=== PATIENT | female | born 1935 ===

== ENCOUNTER 2017-02-15 14:45 | Emergency (ER) | payer MEDICARE ==
[2017-02-15 14:45] VITALS: BMI 23.4
[2017-02-15 15:08] VITALS: BP 140/88; PULSE 84; RESP 18; TEMP 98.2; O2SAT 98
--- NOTE | 2017-02-15 16:09 | ED PDOC ---
Lower Extremity Pain/Injury Time Seen by Provider: 02/15/17 15:46 Chief Complaint (Nursing): Lower Extremity Problem/Injury Chief Complaint (Provider): left foot infection. History Per: Patient History/Exam Limitations: no limitations Additional Complaint(s): 81yo F with hx of RA in ED with x 1month of MRSA infxtn to left medial malleous- recently completed bactrim, however pt states wound has not improved. denies drainage fro wound, denies fever chills, nausea or vomiting. admits to swelling to ankle, however pt states that RA is progressing. no longer taking medication for RA. Past Medical History Reviewed: Historical Data, Nursing Documentation, Vital Signs Vital Signs: Last Vital Signs Temp 98.2 F 02/15/17 15:04 Pulse 84 02/15/17 15:04 Resp 18 02/15/17 15:04 BP 140/88 02/15/17 15:04 Pulse Ox 98 02/15/17 15:04 - Medical History PMH: Anemia, Arthritis, COPD, Crohn's Disease, Depression, Hypercholesterolemia , Osteoporosis, Rheumatoid Arthritis Denies: Chronic Kidney Disease - Family History Family History: States: Unknown Family Hx - Home Medications Home Medications: Ambulatory Orders Medication Instructions Recorded Alprazolam [Xanax] 1.5 mg PO HS 10/04/14 Escitalopram [Lexapro] 30 mg PO DAILY 10/04/14 Etanercept [Enbrel] 25 mg SC .2X WEEKLY 10/04/14 Methotrexate Sodium [Methotrexate] 8 tab PO QWK 10/04/14 Pravastatin Sodium 80 mg PO DAILY 10/04/14 PrednisoLONE 1% [Prednisolone 1 ml OP BID 10/04/14 Acetate 5 Ml] Raloxifene HCl [Evista] 60 mg PO DAILY 10/04/14 Aspirin 325 mg PO DAILY 03/06/15 Acetaminophen with Codeine 2 tab PO Q4H PRN #22 tab 08/30/16 [Tylenol with Codeine No. 3 300 mg-30 mg] Atropine/Diphenoxylate [Lonox 2 tab PO Q6 #30 tab 08/30/16 0.025 MG-2.5 MG] Ciprofloxacin HCl [Cipro] 500 mg PO BID #20 tab 08/30/16 Skin Cleanser Comb No.11 [Cavilon] 1 applic TP PRN PRN #1 bot 08/30/16 metroNIDAZOLE [Flagyl] 500 mg PO TID #30 tab 08/30/16 - Allergies Allergies/Adverse Reactions: Allergies Allergy/AdvReac Type Severity Reaction Status Date / Time pollen extracts AdvReac sneezing Verified 08/30/16 16:53 Review of Systems ROS Statement: Except As Marked, All Systems Reviewed And Found Negative Constitutional: Negative for: Fever, Chills Musculoskeletal: Positive for: Foot Pain Physical Exam - Reviewed Nursing Documentation Reviewed: Yes Vital Signs Reviewed: Yes - Physical Exam Appears: Positive for: Well, Non-toxic, No Acute Distress Head Exam: Positive for: ATRAUMATIC, NORMAL INSPECTION, NORMOCEPHALIC Skin: Positive for: Normal Color, Warm, DRY Cardiovascular/Chest: Positive for: Regular Rate, Rhythm Respiratory: Positive for: CNT, Normal Breath Sounds Extremity: Positive for: Other (left foot: inner ankle-wound noted-open without drainage, warmth noted no streaking noted. swelling noted. RA deformity noted. ) Neurologic/Psych: Positive for: Alert, Oriented - Laboratory Results Result Diagrams: 02/15/17 16:45 02/15/17 16:45 - ECG O2 Sat by Pulse Oximetry: 98 - Progress ED Course And Treament: pt will get labs and xray to f/o osteomyoltis. podiatry consulted . Medical Decision Making Medical Decision Making: podiatry evaluated pt wound guaze provided to pt and pt requested to f.u with wound care clinic Thursday. pt stable d/c Disposition - Clinical Impression Clinical Impression: Ulceration - Patient ED Disposition Is Patient to be Admitted: No Counseled Patient/Family Regarding: Studies Performed, Diagnosis, Need For Followup - Disposition Disposition: Routine/Home Disposition Time: 18:34 Condition: STABLE Additional Instructions: wound care clinic: [phone] Instructions: How to Prevent Pressure Ulcers (ED)
[2017-02-15 16:59] LABS: BASO # 0.1 K/uL (0.0-0.2); BASO % 0.9 % (0.0-2.0); EOS # 0.3 K/uL (0.0-0.7); EOS % 3.4 % (0.0-4.0); HEMATOCRIT 33.3 % (34.0-47.0); LYMPH # 1.2 K/uL (1.0-4.3); MEAN CORPUSCULAR HEMOGLOBIN 30.3 pg (27.0-31.0); MEAN CORPUSCULAR HGB CONC 32.2 g/dL (33.0-37.0); MEAN PLATELET VOLUME 7.5 fl (7.2-11.7); MONO # 0.5 K/uL (0.0-0.8); MONO % 5.8 % (0.0-10.0); NEUT # 7.3 K/uL (1.8-7.0); NEUT % 76.9 % (50.0-75.0); RED CELL DISTRIBUTION WIDTH 18.7 % (11.5-14.5); WHITE BLOOD COUNT 9.4 K/uL (4.8-10.8)
[2017-02-15 17:15] LABS: ALB/GLOB RATIO 0.9 (1.0-2.1); ALKALINE PHOSPHATASE 99 U/L (38-126); ALT/SGPT 22 U/L (9-52); AST/SGOT 50 U/L (14-36); BILIRUBIN,TOTAL 0.6 mg/dl (0.2-1.3); BLOOD UREA NITROGEN 16 mg/dl (7-17); CALCIUM 9.8 mg/dL (8.4-10.2); CARBON DIOXIDE 29 mmol/L (22-30); CHLORIDE 102 mmol/L (98-107); GFR AFRICAN-AMERICAN > 60; GLUCOSE,RANDOM 66 mg/dL (65-105); SODIUM 145 mmol/l (132-148); TOTAL PROTEIN 8.9 G/DL (6.3-8.2)
--- NOTE | 2017-02-15 17:54 | CP.PCM.CON ---
History of Present Illness - History of Present Illness History of Present Illness: 81 year old female with PMHx of RA presents to ED with daughter for complain of painful ulceration to left medial malleolus. Patient states that she has had this ulcer for 1 month. She has been seen by her PMD who prescribed her oral bactrim and bactroban for local wound care. She states that her PMD cultured the wound and it is growing MRSA. The wound got better for a week while she was taking the antibiotic but has gotten more painful. She rates that pain as 9 /10. She denies any n/v/f/c/sob/cp. Past Patient History - Infectious Disease Hx of Infectious Diseases: None - Past Medical History & Family History Past Medical History?: Yes - Past Social History Smoking Status: Former Smoker - CARDIAC Hx Hypercholesterolemia: Yes - PULMONARY Hx Chronic Obstructive Pulmonary Disease (COPD): Yes - NEUROLOGICAL Hx Neurological Disorder: No - HEENT Hx Blind: Yes (PARTIAL) Hx Glaucoma: Yes - RENAL Hx Chronic Kidney Disease: No - ENDOCRINE/METABOLIC Hx Endocrine Disorders: No - HEMATOLOGICAL/ONCOLOGICAL Hx Anemia: Yes - INTEGUMENTARY Hx Dermatological Problems: No - MUSCULOSKELETAL/RHEUMATOLOGICAL Hx Arthritis: Yes Hx Osteoporosis: Yes Hx Rheumatoid Arthritis: Yes - GASTROINTESTINAL Hx Crohn's Disease: Yes - GENITOURINARY/GYNECOLOGICAL Hx Genitourinary Disorders: No - PSYCHIATRIC Hx Depression: Yes - SURGICAL HISTORY Hx Surgeries: Yes Hx Eye Surgery: Yes (CORNEA TRANSPLANT O.U X2) Hx Joint Replacement: Yes (FELIPE TKR .FELIPE THR) Hx Orthopedic Surgery: Yes - ANESTHESIA Hx Anesthesia: Yes Meds Allergies/Adverse Reactions: Allergies Allergy/AdvReac Type Severity Reaction Status Date / Time pollen extracts AdvReac sneezing Verified 08/30/16 16:53 Physical Exam - Constitutional Appears: Non-toxic, No Acute Distress - Extremities Exam Additional comments: Vasc:DP and PT pulses faintly palpalbe b/l. CFT >3 seconds to digits 1-5 b/l. Skin temperature warm to cool from proximal to distal b/l. No edema noted b/l. Derm:An approximetly 1 cm by 1 cm by superficial ulceration noted to the medial malleolus. No drainage noted. Wound base is fibrotic and periwound is purplishing and non-blanchable. No malodor, no increased warmth, no probe to bone noted. Ortho:Fibular deviation noted to the digits 1-5 b/l. Neuro: Gross sensation diminished at level of digits. Pain on palpation to ulceration - Neurological Exam Neurological exam: Alert, Oriented x3 - Psychiatric Exam Psychiatric exam: Normal Affect, Normal Mood Results - Vital Signs Recent Vital Signs: Last Vital Signs Temp 98.2 F 02/15/17 15:04 Pulse 84 02/15/17 15:04 Resp 18 02/15/17 15:04 BP 140/88 02/15/17 15:04 Pulse Ox 98 02/15/17 17:28 - Labs Result Diagrams: 02/15/17 16:45 02/15/17 16:45 Labs: Laboratory Results - last 24 hr 02/15/17 16:45 WBC 9.4 RBC 3.54 L Hgb 10.7 L Hct 33.3 L MCV 94.0 MCH 30.3 MCHC 32.2 L RDW 18.7 H Plt Count 425 H D MPV 7.5 Neut % (Auto) 76.9 H Lymph % (Auto) 13.0 L [place] % (Auto) 5.8 Eos % (Auto) 3.4 Baso % (Auto) 0.9 Neut # 7.3 H Lymph # 1.2 [place] # 0.5 Eos # 0.3 Baso # 0.1 Sodium 145 Potassium 5.0 Chloride 102 Carbon Dioxide 29 Anion Gap 19 BUN 16 Creatinine 0.7 Est GFR ( Amer) > 60 Est GFR (Non-Af Amer) > 60 Random Glucose 66 Calcium 9.8 Total Bilirubin 0.6 AST 50 H D ALT 22 Alkaline Phosphatase 99 Total Protein 8.9 H Albumin 4.2 Globulin 4.7 H Albumin/Globulin Ratio 0.9 L Assessment & Plan - Assessment and Plan (Free Text) Assessment: 81 year old female with PMHx of RA with ulceration noted to medial malleolus Plan: Patient examined and evaluated Chart, labs, vitals reviewed Radiographs reviewed- no acute signs of fracture, bone stock noted to be poor Discussed in detail with attending, Dr. Queen Topical lidocaine ordered to be applied to ulceration site Q4prn Patient to follow up in Podiatry Clinic this week, given number for central scheduling
[2017-02-15] MEDS ORDERED: Lidocaine Hydrochloride 5 ML INJ ONE (18:18)
[2017-02-15] MEDS ORDERED: Lidocaine 2% GEL TOP ONE (18:30)
--- NOTE | 2017-02-16 13:27 | RAD ---
PROCEDURE: Left Ankle Radiographs. HISTORY: ankle injury COMPARISON: None FINDINGS: BONES: There is diffuse bone demineralization. There is no acute displaced fracture or dislocation. Bone alignment is normal. There is a prominent plantar calcaneal spur. JOINTS: The ankle mortise is not widened. There is degenerative osteoarthrosis in the talonavicular and subtalar joints. SOFT TISSUES: Normal. OTHER FINDINGS: None. IMPRESSION: No acute displaced fracture or dislocation.
--- NOTE | 2017-02-17 08:53 | RAD ---
PROCEDURE: Left Foot Radiographs. HISTORY: ankle wound COMPARISON: None. FINDINGS: BONES: There is diffuse osteopenia seen in the visualized osseous structures. No evidence of acute fracture. JOINTS: Advanced arthritic changes seen at the left ankle and in the left foot. Subluxations in the tarsal metatarsal and 1st metatarsal-phalangeal joints seen. SOFT TISSUES: Diffuse soft tissue edema. No evidence of pneumatosis. OTHER FINDINGS: None. IMPRESSION: Deformity and advanced arthritic changes seen in the left ankle and foot. Diffuse osteopenia. Soft tissue swelling likely due demand. No evidence of soft tissue air/ pneumatosis.
== END 2017-02-15 19:45 | disposition home or self-care (01) ==
LOC: H.ER 14:45
DX: L98.499 Non-pressure chronic ulcer of skin of other sites with unspecified severity (principal); E78.00 Pure hypercholesterolemia, unspecified; K50.90 Crohn's disease, unspecified, without complications